=== PATIENT | male | born 1950 | race Caucasian/White ===

== ENCOUNTER 2024-04-27 19:03 | Emergency (ER) | payer OTHER ==
[~2024-04-27] VITALS: Ht 177.8 cm; Wt 84.0 kg
[2024-04-27] MEDS: SODIUM CHLORIDE 0.9% 1,000 ML IV ONE (19:15)
[2024-04-27] MEDS: CEFTRIAXONE 1GM/50ML 50 ML IV ONE (20:25)
[2024-04-27 20:34] LABS: HEMATOCRIT. 46.6 % (42.0-52.0); HEMOGLOBIN. 15.6 g/dL (14.0-18.0); MEAN CORPUSCULAR HEMOGLOBIN 27.9 pg (28.0-32.0); MEAN CORPUSCULAR HGB CONC 33.4 g/dL (31.0-37.0); MEAN CORPUSCULAR VOLUME 83.6 fL (80.0-94.0); MEAN PLATELET VOLUME 9.9 fl (7.4-10.4); PLATELET 250 x1000/uL (130-400); RED BLOOD CELL COUNT 5.57 mill/uL (4.7-6.1); RED CELL DISTRIBUTION WIDTH 14.4 % (11.6-14.6); WHITE BLOOD COUNT 17.6 x1000/uL (4.5-11.0)
[2024-04-27 20:34] LABS: GLUCOSE URINE NEGATIVE (NEGATIVE); KETONES URINE TRACE (NEGATIVE)
[2024-04-27 20:37] LABS: DIFFERENTIAL COMMENT 1
[2024-04-27 20:39] LABS: CHLORIDE 104 mEq/L (98-107); POTASSIUM 4.1 mEq/L (3.5-5.1); SODIUM 135 mEq/L (136-145)
[2024-04-27 20:40] LABS: CALCIUM 9.3 mg/dL (8.7-10.4); CARBON DIOXIDE 22 mEq/L (21-32)
[2024-04-27 20:45] LABS: CREATININE 1.1 mg/dL (0.6-1.3); GLUCOSE 122 mg/dL (70-105); UREA NITROGEN BLOOD 25 mg/dL (9-23)
[2024-04-27 20:48] LABS: COLOR URINE YELLOW (YELLOW)
[2024-04-27 20:51] LABS: CLARITY URINE HAZY (CLEAR); LEUKOCYTE ESTERASE URINE 3+ (NEGATIVE); NITRITE URINE NEGATIVE (NEGATIVE); OCCULT BLOOD URINE TRACE (NEGATIVE); PH URINE 7.5 (4.5-8.0); PROTEIN URINE 1+ (NEGATIVE); SPECIFIC GRAVITY URINE 1.012 (1.005-1.030); UROBILINOGEN URINE 0.2 E.U./dL (0.2-1.0)
[2024-04-27 21:09] LABS: BACTERIA URINE 2+; RBC URINE 0-2 /hpf (0-2); SQUAMOUS EPITHELIAL CELL URINE FEW /lpf (RARE/1+)
[2024-04-27 21:10] LABS: FINE GRANULAR CASTS URINE 0-5 /lpf
[2024-04-27] MEDS: AZITHROMYCIN 500MG/250ML 250 ML IV SCH (21:57)
[2024-04-27 22:32] LABS: OVALOCYTES 1+; PLATELET ESTIMATE NORMAL; TEAR DROP CELLS 1+
[2024-04-27 23:18] VITALS: TEMP 98
[2024-04-27] MEDS: ACETAMINOPHEN 325MG TABLET PO ONE (23:18)
[2024-04-28 01:16] VITALS: PULSE 82; RESP 26; O2SAT 95
[2024-04-28] MEDS: ALBUTEROL (0.5%) 2.5MG/0.5ML NEB HHN NR (01:16)
[2024-04-28 02:24] VITALS: BP 121/78; PULSE 89; RESP 35
== END 2024-04-28 02:29 | disposition short-term general hospital (02) ==
LOC: ER 19:03
DX: C34.90 Malignant neoplasm of unspecified part of unspecified bronchus or lung (principal); J18.9 Pneumonia, unspecified organism; R09.02 Hypoxemia; Z87.01 Personal history of pneumonia (recurrent)
CPT/HCPCS: 99285; 96365; 71250; 96366; 96367; 71045; 96361; 80048; 81003; 83605; 85025; 87040; 36415; 94640; 93005; J0456; J0696; J7030